=== PATIENT | male | born 1945 | race Caucasian/White ===

== ENCOUNTER 2019-01-21 01:45 | Emergency (ER) | payer MEDICARE, SELFPAY ==
[2019-01-21 01:47] VITALS: BP 147/80; PULSE 89; RESP 18; TEMP 36.9; O2SAT 94; BMI 28.5
--- NOTE | 2019-01-21 02:08 | EKG12_ITS ---
Test Reason : Blood Pressure : / mmHG Vent. Rate : 076 BPM Atrial Rate : 076 BPM P-R Int : 198 ms QRS Dur : 108 ms QT Int : 412 ms P-R-T Axes : 048 -28 046 degrees QTc Int : 463 ms Normal sinus rhythm Incomplete right bundle branch block Borderline ECG Confirmed by MAUREEN NEWTON, KAZ ([id number]), medical transcription editor JALIL CHASE ([id number]) on 01/22/2019 10:43:25 AM Referred By: YOANA Confirmed By:CAITLYN REDDY MD
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
--- NOTE | 2019-01-21 02:08 | RAD_ITS ---
HISTORY: CONFUSION ADDITIONAL HISTORY: None provided. COMPARISON: None TECHNIQUE: Frontal chest radiograph. Number of images including paperwork: 1 FINDINGS: LUNGS AND PLEURA: Low lung volumes. No consolidation, mass or pleural effusion. Azygos fissure. CARDIAC SILHOUETTE: Unremarkable. MEDIASTINUM AND SEAMUS: Unremarkable. UPPER ABDOMEN: Unremarkable. SKELETON AND SOFT TISSUES: No acute findings. Degenerative changes. OTHER DEVICES AND HARDWARE: None. RAD/Chest 1 View (Portable) IMPRESSION: Low lung volumes without definite acute abnormality. at 0244 Reported and signed by: Kendal Burris MD Electronically Signed: Kendal Burris MD at 2:44 EDT Tel , Service support ,
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
[2019-01-21 02:19] LABS: Absolute Lymphocyte Count 1.96 X10^3/ul (0.83-4.51); Absolute Neutrophil Count 7.2 X10^3/uL (2.0-7.7); Basophil# 0.02 X10^3/uL; Basophil% 0.2 % (0-1); Eosinophil# 0.07 X10^3/uL; Eosinophils% 0.7 % (0-5); Hematocrit 42.8 % (40-54); Lymphocyte # 1.96 X10^3/ul (4.0); Lymphocyte % 19.4 % (19-41); Mean Corpuscular Hgb 31.3 pg (27.0-32.0); Mean Corpuscular Volume 89.2 fL (80-94); Mean Platelet Vol. 9.6 fl (6.2-12.0); Monocyte# 0.84 X10^3/uL; Monocyte% 8.3 % (0-10); Neutrophil # 7.19 X10^3/uL (2.7-7.7); Neutrophil % 71.2 % (47-70); Platelet Count 280 K/mm3 (150-450); RBC Distribution Width CV 12.6 % (11.6-14.6); RBC Distribution Width SD 40.7 fl (35.1-43.9); White Blood Count 10.1 K/mm3 (4.4-11.0)
[2019-01-21 02:20] LABS: POSITIVE COUNT NO; POSITIVE DIFFERENTIAL NO; POSITIVE MORPHOLOGY NO
[2019-01-21 02:31] LABS: ALB/GLOB Ratio 1.2 RATIO (0.9-2.4); AST(SGOT) 18 U/L (15-37); Alanine Aminotransfer ALT/SGPT 38 U/L (16-61); Alkaline Phosphatase 61 U/L (45-117); Anion Gap 3 (5-15); BUN 29 mg/dL (7-18); BUN/Creat Ratio 30.7 RATIO (10-20); Calcium,Total 9.3 mg/dL (8.5-10.1); Chloride 104 mmol/L (98-107); Creatinine, Serum 0.94 mg/dL (0.70-1.30); EST Glomerular Filtration Rate 84 mL/min (>60); Est Glom Filt Rate - Afr Amer 101 mL/min (>60); Estimated Creatinine Clearance 69.73 ml/min; Globulin 3.4 g/dL (2.2-4.2); Glucose 200 mg/dL (74-106); Potassium 3.7 mmol/L (3.5-5.1); Protein, Total 7.4 g/dL (6.4-8.2); Sodium Level 136 mmol/L (136-145)
[2019-01-21 02:57] LABS: Red Blood Cells-Urine 0 SEEN /hpf (0-5); White Blood Cells 0 SEEN /hpf (0-5)
[2019-01-21 03:11] LABS: Color, Urine Yellow (Yellow); Glucose, Dipstick 1000 mg/dl (Normal); Ketone-Dipstick 5 mg/dl (Negative); Leukocyte Esterase-Dipstick Negative /ul (Negative); Nitrite-Dipstick Negative (Negative); Occult Blood-Urine Negative /ul (Negative); Protein-Dipstick 15 mg/dl (Negative); Specific Gravity, Urine 1.025 (1.002-1.030); Urine Clarity Clear (Clear); Urine Urobilinogen 1 mg/dl (Normal)
[2019-01-21 03:13] LABS: Urine Bilirubin Dipstick 3 mg/dL (Negative)
[2019-01-21 03:16] LABS: Bacteria RARE /hpf (None Seen); Mucous, Urine RARE /hpf (<or=2+); Squamous Epithelial Cells - UA 0-5 SEEN /hpf (0-5)
--- NOTE | 2019-01-21 03:29 | ED.DEP ---
ED Disposition - Plan for ED Patient: Instructions: DEMENTIA, Any Type Referrals: NOT,DEFINED [NON-STAFF] -
[2019-01-21 03:36] VITALS: BP 143/80; PULSE 87; RESP 17; O2SAT 96
== END 2019-01-21 03:38 | disposition home or self-care (01) ==
PROVIDERS: Emergency Provider Emergency Medicine
DX: F03.90 Unspecified dementia, unspecified severity, without behavioral disturbance, psychotic disturbance, mood disturbance, and anxiety (principal); E11.9 Type 2 diabetes mellitus without complications
CPT/HCPCS: 70450; 71045; 80053; 81001; 85025; 93005; 99285; A4216